=== PATIENT | female | born 1985 | race Caucasian/White ===

== ENCOUNTER 2023-11-13 12:49 | Emergency (ER) | payer BC, SELFPAY ==
[2023-11-13 12:50] VITALS: BP 156/78
--- NOTE | 2023-11-13 13:59 | ED.SKININJ ---
HPI-Injury
<Susy Pierre PA-C - Last Filed: 11/13/23 18:02>
General
Chief Complaint: Bite
Source: patient
Exam Limitations: none
Time Seen by Provider: 11/13/23 13:14
Nursing documentation reviewed up to this point in time: agreed with
Travel History
Have you had any contact with someone who has COVID-19?: No
Do you have any symptoms of coronavirus? Fever > 100 degrees, chills, cough, shortness of breath, sore throat, loss of taste or smell, muscle aches, or headache?: No
History of Present Illness-Injury
Initial Injury comments:
Patient is a 38-year-old female presenting for evaluation of left finger injury following dog bite. Patient states that bite occurred last night while she was attempting to take a bone from her dog when he accidentally bit down on her finger. This
occurred at home, it was her dog who was fully vaccinated. Immediately following the bite she cleaned the wound with hydroperoxide and wrapped it with gauze. She had to change the bandage a few times due to persistent bleeding. She did notice some
numbness/tingling of tip of right index finger.
She went to urgent this morning where they referred her to emergency department due to numbness. They did give her a tetanus booster at urgent care.
Phy Exam
<Susy Pierre PA-C - Last Filed: 11/13/23 18:02>
Physical Exam
Physical Exam:
General: Well appearing and non-toxic
Vitals: VSS, afebrile
HEENT: protecting airway
Neck: appears supple
CV: No evidence of cyanosis
Resp: No accessory muscle use
Abd: Non-distended
Extremities: Laceration to right index finger as described below with some mild paresthesia to tip of right index finger, no evidence of tendon involvement
Neuro: alert
Psych: Normal affect
Skin: Horizontal laceration to right index finger through nailbed; picture below
Course
<Susy Pierre PA-C - Last Filed: 11/13/23 18:02>
Orders/Labs/Results
Orders:
Orders
11/13/23 12:54
Finger(s)/Thumb 2 View Rt [CR Finger(s)/thumb Min 2 Vw Rt] Urgent
Comment:
Reason For Exam: bite
Indicate Which Finger:: Index Finger
11/13/23 14:27
Amoxicillin 875 mg/Clav 125 mg [Augmentin 875 mg/125 mg] 1 tablet PO NOW STA
Vital Signs
Initial and Last Documented VS:
Initial Vital Signs
Temp Pulse Resp BP Pulse Ox
98.6 F 108 16 156/78 98
11/13/23 12:50 11/13/23 12:50 11/13/23 12:50 11/13/23 12:50 11/13/23 12:50
Last Documented Vital Signs
Temp Pulse Resp BP Pulse Ox
98.6 F 98 16 156/78 99
11/13/23 12:50 11/13/23 16:07 11/13/23 12:50 11/13/23 12:50 11/13/23 16:07
<Jose Singleton MD - Last Filed: 11/13/23 14:51>
Orders/Labs/Results
Orders:
Orders
11/13/23 12:54
Finger(s)/Thumb 2 View Rt [CR Finger(s)/thumb Min 2 Vw Rt] Urgent
Comment:
Reason For Exam: bite
Indicate Which Finger:: Index Finger
11/13/23 14:27
Amoxicillin 875 mg/Clav 125 mg [Augmentin 875 mg/125 mg] 1 tablet PO NOW STA
Vital Signs
Initial and Last Documented VS:
Initial Vital Signs
Temp Pulse Resp BP Pulse Ox
98.6 F 108 16 156/78 98
11/13/23 12:50 11/13/23 12:50 11/13/23 12:50 11/13/23 12:50 11/13/23 12:50
Last Documented Vital Signs
Temp Pulse Resp BP Pulse Ox
98.6 F 98 16 156/78 99
11/13/23 12:50 11/13/23 16:07 11/13/23 12:50 11/13/23 12:50 11/13/23 16:07
<Susy Pierre PA-C - Last Filed: 11/13/23 18:02>
MDM/Problems Addressed
Differential Diagnosis Includes:
Finger laceration
MDM/Problems Addressed:
Patient is a 38-year-old female presenting for evaluation of right index finger laceration secondary to dog bite. This occurred last night around 7 PM. She cleaned wound with hydroperoxide and covered with gauze. Wound continued to bleed
throughout the night and she went to urgent care this morning where they updated her tetanus shot referred to the emergency department for further evaluation due to numbness of tip of right index finger. She has a horizontal laceration through the
nailbed of right index finger. Discussed with hand surgeon who recommends leaving open and follow-up with hand surgeon in the next 2 days.
Digital block performed of right index finger with 1% lidocaine. Irrigated wound thoroughly with saline and chlorhexidine scrub. Wound covered with nonadherent pad and wrapped with gauze.
Will start patient on course of antibiotic prophylactically. First dose of Augmentin given in emergency department today.
She is stable for discharge wound care instructions, return precautions, hand surgeon follow-up in a few days. Patient is comfortable with this plan. All questions answered.
Chronic conditions affecting care:
N/A
Acute Exacerbation and/or Progression of Chronic Illness:
Finger laceration
<Susy Pierre PA-C - Last Filed: 11/13/23 18:02>
*Radiology
Radiology exam reviewed: preliminary read by ED provider and radiology read reviewed
*Pulse Oximetry
Patient hypoxic: no
*Autographer Interpretation
Rate: Autographer- N/A
*Critical Care Note
Total Time (30-74mins, 75-104mins- exclusive of procedures): Not Applicable
<Susy Pierre PA-C - Last Filed: 11/13/23 18:02>
Patient Management
Discussion with other providers: Other (hand surgeon)
ED Attending Note
<Susy Pierre PA-C - Last Filed: 11/13/23 18:02>
-
Portions of this chart may have been created with voice recognition software.� Occasional wrong word or��sound alike� substitutions may have occurred due to the inherent limitations of voice recognition software.
<Jose Singleton MD - Last Filed: 11/13/23 14:51>
ED Attending Note
Patient seen and examined by attending physician: Yes
ED Attending Note:
HPI: 38-year-old female with no reported chronic medical issues presents to the emergency room for evaluation of dog bite. Patient reports that last night she was bitten by her own dog on the right index finger. Sustained a laceration.
Immediately cleaned and applied a dressing. Today show to a friend who urged her to go to have it assessed. Apparently went to urgent care and was referred to the emergency room for further assessment after receiving a tetanus shot there. She has
some mild paresthesias in the fingertips on the right index finger where she was bitten. Some mild pain in the area of the laceration. No other complaints.
ROS: Positive for finger laceration; negative for fever or chills
Physical exam:
General: Well appearing and non-toxic
HEENT: protecting airway
Neck: appears supple
CV: No evidence of cyanosis
Resp: No accessory muscle use
Abd: Non-distended
Extremities: No deformities
Neuro: Alert
Psych: Normal affect
Skin: Patient has laceration to the right index finger horizontally across the nailbed (pictured below)
Differential diagnosis: Finger laceration
Medical decision makin-year-old female presents with a horizontal laceration across right index finger nailbed secondary to dog bite. Had a tetanus shot at urgent care referred to the emergency room for further assessment. Concern for close
approximation with sutures given dog bite will plan for vigorous irrigation/cleaning and leave open. Will start on prophylactic antibiotic. Discussed with hand surgery they agree with leaving open will see patient in the office later this week.
Chronic conditions affecting care: N/A
Acute exacerbation or progression of chronic illness: N/A
History source: Patient
Data reviewed: N/A
Medications/testing considered: N/A
Social determinants of health: N/A
Discussion with other providers: Discussed with hand surgery
Discharge Plan
Departure
Patient Disposition: Home (Routine Discharge)
Date of Disposition: 11/13/23
Time of Disposition: 15:37
Patient with high blood pressure during this ER visit?: Yes
Condition: Good
Discharge Problem:
Dog bite, Nailbed laceration, finger
Instructions: Animal Bites (DC), BLOOD PRESSURE
Prescriptions:
New
amoxicillin-pot clavulanate 875-125 mg tablet
1 tab PO BID 7 Days Qty: 14 0RF
No Action
prenat.vits,angeles,tvn-bdsx-zlolu [ Vitamin] 1 TAB tablet
1 mg PO DAILY
acetaminophen 325 MG tablet
650 mg PO Q3HPRN PRN (Reason: mild pain) Qty: 0 0RF
sennosides-docusate sodium 1 TABLET tablet
1 tab PO DAILYPRN PRN (Reason: constipation) Qty: 0 0RF
ibuprofen 600 MG tablet
400 mg PO Q4HPRN PRN (Reason: moderate pain/cramps) Qty: 0 0RF
Referrals:
Floridalma Mccoy PA-C [Family Provider] -
Andrew Cr MD [Active] - Call in 1-3 days for appt (Hand surgeon)
Activity Restrictions/Additional Instructions:
Thank you for visiting the Emergency Department at [facility].
1. Please schedule a follow up appointment as directed. Call first thing tomorrow morning to make an appointment.
2. If indicated, please take your medications as instructed and indicated on discharge paperwork.
3. If any of your symptoms do not improve, or persist, or become more severe within 6-12 hours, please return to the emergency department for further care.
4. Please return to the emergency department if you develop a headache, neck pain/stiffness, fever greater than 100.4F, chest pain, shortness of breath, persistent nausea, vomiting, slurred speech, difficulty walking, numbness/tingling, weakness,
signs of infection or any other symptoms that are worrisome to you.
Please call [phone] if you have any questions.
Interventions
Interventions:
*Risk Screen - Suicide Last Done: 11/13/23 12:50
*General Assessment Last Done: 11/13/23 12:50
*Neglect/Abuse Screening Last Done: 11/13/23 12:50
*Nursing Disposition Last Done: 11/13/23 16:07
ED-Skin Assessment Last Done: 11/13/23 13:36
Discharge Date and Time
Discharge Date/Time: 11/13/23 16:08
[2023-11-13] MEDS: AUGMENTIN 875 MG/125 MG 1 TABLET PO (14:42)
== END 2023-11-13 16:08 | disposition home or self-care (01) ==
LOC: EMR 12:49
PROVIDERS: EMERGENCY PHYSICIAN Emergency Medicine; FAMILY PHYSICIAN Physician Assistant Medical
DX: S61.350A Open bite of right index finger with damage to nail, initial encounter (principal); W54.0XXA Bitten by dog, initial encounter
CPT/HCPCS: 99284; 64450; 73140